=== PATIENT | male | born 1980 | race African-American/Black ===

== ENCOUNTER 2022-01-27 09:10 | Outpatient (CLI) | payer SELFPAY | END 2022-01-27 23:59 | disposition home or self-care (01) | LOC: MRI 09:10 | PROVIDERS: ATTEND Internal Medicine | DX: R10.9 Unspecified abdominal pain (principal); R10.2 Pelvic and perineal pain | CPT/HCPCS: 72195-TC; 74181-TC ==

== ENCOUNTER 2022-04-16 15:38 | Emergency (ER) | payer OTHER ==
[~2022-04-16] VITALS: Ht 182.9 cm; Wt 88.5 kg
[2022-04-16 16:15] LABS: BASOPHILS % (AUTO) 0.4 % (0.0-2.0); EOSINOPHILS % (AUTO) 0.6 % (0.0-6.0); HEMATOCRIT 47 % (39-51); HEMOGLOBIN 15.6 g/dL (13.5-17.5); LYMPHOCYTES # (AUTO) 1.6 K/uL (0.8-4.8); LYMPHOCYTES % (AUTO) 34.7 % (20.0-44.0); MEAN CORPUSCULAR HGB CONC 33 g/dl (31.0-36.0); MEAN CORPUSCULAR VOLUME 88 fL (80-96); MONOCYTES # (AUTO) 0.5 K/uL (0.1-1.30); MONOCYTES % (AUTO) 10.2 % (2.0-12.0); NEUTROPHILS # (AUTO) 2.6 K/uL (1.8-8.9); NEUTROPHILS % (AUTO) 54.1 % (43.0-81.0); PLATELET COUNT (AUTO) 212 K/uL (150-450); RED BLOOD CELL COUNT(AUTO) 5.35 MIL/uL (4.5-6.0); WHITE BLOOD COUNT (AUTO) 4.8 K/uL (4.3-11.0)
[2022-04-16 16:21] LABS: BILIRUBIN,URINE NEGATIVE (NEGATIVE); COLOR,URINE YELLOW (YELLOW); LEUKOCYTE ESTERASE ,URINE NEGATIVE (NEGATIVE); NITRITE, URINE NEGATIVE (NEGATIVE); PROTEIN,URINE NEGATIVE (NEGATIVE); UGLUCOSE NEGATIVE (NEGATIVE); UROBILINOGEN,URINE 0.2 EU/dL (0.2)
[2022-04-16] MEDS ORDERED: MORPHINE SULFATE INJ 2 MG/ML DISP.SYRIN IV ONE (16:30)
[2022-04-16] MEDS ORDERED: ONDANSETRON HCL/PF 4 MG/2 ML VIAL IVP ONE (16:30)
[2022-04-16] MEDS ORDERED: ONDANSETRON HCL/PF 4 MG/2 ML VIAL ONE (16:35)
[2022-04-16] MEDS ORDERED: MORPHINE SULFATE INJ 4 MG/ML DISP.SYRIN ONE (16:35)
[2022-04-16 16:36] LABS: CALCIUM, SERUM 9.2 mg/dL (8.5-10.1); CREATININE 1.3 mg/dL (0.6-1.3); POTASSIUM 4.3 mmol/L (3.5-5.1)
[2022-04-16 16:43] LABS: ALBUMIN 4.5 g/dL (3.4-5.0); BILIRUBIN,DIRECT 0.2 mg/dL (0.0-0.2); TOTAL PROTEIN, SERUM 8.2 g/dL (6.4-8.2)
[2022-04-16] MEDS ORDERED: IV NS 0.9% 250 ML IV ONE (16:53)
[2022-04-16] MEDS ORDERED: CT SWABBABLE VALVE TRANS SET 1 EA INFUS.SET MC ONE (16:53)
[2022-04-16] MEDS ORDERED: IOHEXOL-300 100 ML VIAL IV ONE (16:53)
--- NOTE | 2022-04-16 18:21 | NUR ---
COVID SWAB DONE AND SENT TO LAB
--- NOTE | 2022-04-16 19:24 | NUR ---
MOVE SHEET SUBMITTED.
--- NOTE | 2022-04-16 20:12 | NUR ---
PT IN BED. A/OX4. TOLERATING R/A WELL WITH NO RESP DISRESS. RAC #20G S/L
--- NOTE | 2022-04-16 21:37 | NUR ---
PT BEING TRANSFERRED TO [facility]; AWAITING TRANSFER AND ACCEPTING INFO
--- NOTE | 2022-04-16 21:52 | NUR ---
ACCPETED ROOM [facility] [phone] [facility] ETA [phone]
--- NOTE | 2022-04-16 23:02 | NUR ---
REPORT GIVEN TO MAURICIO GLYNN AT [facility]
--- NOTE | 2022-04-17 00:33 | NUR ---
FOLLOWED UP WITH [facility] NEW ETA - [phone]
[2022-04-17 01:13] VITALS: BP 120/73
--- NOTE | 2022-04-17 02:30 | NUR ---
[facility] AT PT'S BEDSIDE; GIVEN TO EMT. PT TO BE TRANSFERRED TO [facility]
== END 2022-04-17 02:40 | disposition short-term general hospital (02) ==
LOC: ER 15:45
DX: R10.31 Right lower quadrant pain (principal); Z20.822 Contact with and (suspected) exposure to COVID-19
CPT/HCPCS: 99285; 74177; 96374; 87426; 85025; 80048; 83690; 80076; 81003; 36415; 87081; J2405; J7050; Q9967; C9803; J2270